=== PATIENT | female | born 1940 | race Two or more races ===

== ENCOUNTER 2020-03-04 14:30 | Inpatient (IN) | payer OTHER ==
[~2020-03-04] VITALS: Ht 160 cm; Wt 58.9 kg
[2020-03-04] MEDS ORDERED: ACETAMINOPHEN 325 MG TAB PO ONE (14:45)
[2020-03-04 15:28] LABS: Basophils # (auto) 0 10 ^3/uL (0-0.2); Basophils % (auto) 0.1 % (0.0-2.0); Eosinophils # (auto) 0 10 ^3/uL (0-0.8); Hematocrit 39.3 % (36.0-46.0); Lymphocytes # (auto) 0.7 10 ^3/uL (0.4-5.4); Lymphocytes % (auto) 11.9 % (10.0-50.0); Mean Corpuscular Hemoglobin 32.5 pg (28.0-32.0); Mean Corpuscular Hgb Conc. 35.7 g/dL (32.0-36.0); Mean Corpuscular Volume 91.3 fL (80.0-100.0); Monocytes # (auto) 0.3 10 ^3/uL (0-1.3); Monocytes % (auto) 5.2 % (0.0-12.0); Neutrophils # (auto) 4.9 10 ^3/uL (1.6-8.6); Neutrophils % (auto) 82.8 % (37.0-80.0); Nucleated Red Blood Cells % 0.3 %; Platelet Count (auto) 236 10^3/uL (140-450); Red Cell Distribution Width 12.5 % (11.8-14.3); White Blood Cell 5.9 10^3/uL (4.4-10.8)
[2020-03-04 15:44] LABS: Albumin 2.9 g/dL (3.4-5.0); Anion Gap 8 (5-15); Blood Urea Nitrogen 18 mg/dL (7-18); Calcium 8.5 mg/dL (8.5-10.1); Carbon Dioxide 26 mmol/L (21-32); Chloride 100 mmol/L (98-107); Glucose 115 mg/dL (74-106); Magnesium 2.5 mg/dL (1.6-2.6); Potassium 3.4 mmol/L (3.5-5.1); Sodium 134 mmol/L (136-145)
[2020-03-04 15:49] LABS: Alanine Aminotransferase 51 U/L (13-56); Alkaline Phosphatase 79 U/L (45-117); Aspartate Aminotransferase 79 U/L (15-37); BUN/Creatinine Ratio 20.9; Bilirubin, Total 0.7 mg/dL (0.2-1.0); GFR African American 82 mL/min; GFR Non-African American 68 mL/min
[2020-03-04] MEDS ORDERED: DexAMETHasone 4 MG TAB PO ONE (18:00)
[2020-03-04] MEDS ORDERED: ASCORBIC ACID 500 MG TAB PO ONE (18:00)
[2020-03-04] MEDS ORDERED: AZITHROMYCIN 500MG/ 250ML 250 ML IV ONE (18:00)
[2020-03-04] MEDS ORDERED: DexAMETHasone SOD PHOS 10MG/1ML VIAL INJ ONE (18:13)
[2020-03-04] MEDS ORDERED: DexAMETHasone SOD PHOS 10MG/1ML VIAL INJ IV ONE (18:30)
[2020-03-04] MEDS ORDERED: NITROGLYCERIN 0.4 MG SL TAB SL PRN ×2 (19:30)
[2020-03-04] MEDS ORDERED: MORPHINE SULF INJ 2 MG/ML SYRINGE 1ML IV PRN ×2 (19:30)
[2020-03-05] MEDS ORDERED: ONDANSETRON HCL 4 MG/2 ML VIAL IV PRN
[2020-03-05] MEDS ORDERED: LISINOPRIL 20 MG TAB PO ONE
[2020-03-05] MEDS ORDERED: NITROGLYCERIN 0.4 MG SL TAB SL PRN
[2020-03-05] MEDS ORDERED: DOCUSATE SOD 100 MG CAP PO PRN
[2020-03-05] MEDS ORDERED: ALUM & MAG HYDROX-SIMETH LIQ(MAALOX) 30 ML PO PRN
[2020-03-05] MEDS ORDERED: REMDESIVIR PER PHARMACY 0 ML IV SCH
[2020-03-05] MEDS ORDERED: ACETAMINOPHEN 500 MG TAB PO PRN
[2020-03-05] MEDS ORDERED: HYDROcodone-ACET 5/325MG TAB PO PRN
[2020-03-05] MEDS ORDERED: MORPHINE SULF INJ 2 MG/ML SYRINGE 1ML IV PRN ×2
[2020-03-05] MEDS ORDERED: POTASSIUM CHL 20MEQ/100ML 100 ML IV ONE
[2020-03-05] MEDS: SODIUM CHLORIDE 0.9% 1,000 ML IV SCH ×2 (01:43→16:58)
[2020-03-05] MEDS: GABAPENTIN 300 MG CAP PO SCH ×3 (06:06→21:45)
[2020-03-05] MEDS: LEVOTHYROXINE SODIUM 25 MCG TAB PO SCH (07:00)
--- NOTE | 2020-03-05 08:21 | NUR ---
Telemetry admit from ER TOBI BYERS admitted to Telemetry unit after SBAR received. Patient oriented to KATE BOUCHERRN primary RN, [facility],288 room,B bed, and unit policies regarding patient care and visiting hours. Patient now on continuous telemetry monitoring, tele box # 66 and telemetry reading on arrival to unit is SB 56. Patient placed on bedside oxygen, weighed by bedscale and encouraged to call if they need something. All questions and concerns addressed, patient verbalized understanding. Note:
[2020-03-05 08:40] VITALS: BP 125/70
[2020-03-05 09:00] VITALS: BP 125/70
[2020-03-05 10:18] LABS: Basophils # (auto) 0 10 ^3/uL (0-0.2); Basophils % (auto) 0.1 % (0.0-2.0); Eosinophils # (auto) 0 10 ^3/uL (0-0.8); Hematocrit 37.9 % (36.0-46.0); Hemoglobin 13.2 g/dL (12.2-16.2); Lymphocytes # (auto) 0.3 10 ^3/uL (0.4-5.4); Lymphocytes % (auto) 14.6 % (10.0-50.0); Mean Corpuscular Hemoglobin 31.8 pg (28.0-32.0); Mean Corpuscular Hgb Conc. 34.8 g/dL (32.0-36.0); Mean Corpuscular Volume 91.4 fL (80.0-100.0); Monocytes # (auto) 0.1 10 ^3/uL (0-1.3); Monocytes % (auto) 5.6 % (0.0-12.0); Neutrophils # (auto) 1.9 10 ^3/uL (1.6-8.6); Neutrophils % (auto) 79.7 % (37.0-80.0); Nucleated Red Blood Cells % 0.2 %; Platelet Count (auto) 244 10^3/uL (140-450); Red Blood Cells 4.15 10^6/uL (4.0-5.20); Red Cell Distribution Width 12.4 % (11.8-14.3); White Blood Cell 2.4 10^3/uL (4.4-10.8)
[2020-03-05 10:26] LABS: Chloride 102 mmol/L (98-107); Potassium 3.8 mmol/L (3.5-5.1); Sodium 134 mmol/L (136-145)
[2020-03-05] MEDS: BUDESONIDE (INHALATION) 180 MCG IH IN SCH ×2 (10:27→20:45)
[2020-03-05] MEDS: ALBUTEROL SULF HFA 90MCG INH 200DOSE IN PRN ×2 (10:28→20:46)
[2020-03-05] MEDS: ENOXAPARIN SOD 40 MG/0.4 ML SYRINGE SC SCH ×2 (10:48→21:46)
[2020-03-05] MEDS: DOXYCYCLINE 100MG/250ML 250 ML IV SCH ×2 (10:50→21:45)
[2020-03-05] MEDS: LISINOPRIL 20 MG TAB PO SCH (10:50)
[2020-03-05] MEDS: CHOLECALCIFEROL (VITD3) 2,000 UNIT CAP PO SCH (10:51)
[2020-03-05] MEDS: POTASSIUM CHL 20 Meq TABLET PO SCH (10:51)
[2020-03-05] MEDS: ASCORBIC ACID 1,000 MG TAB PO SCH (10:51)
[2020-03-05] MEDS: ZINC SULFATE 220mg CAP or TAB PO SCH (10:55)
[2020-03-05 10:58] LABS: Alanine Aminotransferase 49 U/L (13-56); Albumin 2.6 g/dL (3.4-5.0); Alkaline Phosphatase 68 U/L (45-117); Anion Gap 9 (5-15); Aspartate Aminotransferase 57 U/L (15-37); BUN/Creatinine Ratio 26.3; Bilirubin, Total 0.5 mg/dL (0.2-1.0); Blood Urea Nitrogen 20 mg/dL (7-18); Calcium 8.3 mg/dL (8.5-10.1); Carbon Dioxide 23 mmol/L (21-32); Cholesterol 145 mg/dL (< 200); GFR African American 95 mL/min; GFR Non-African American 78 mL/min; Glucose 154 mg/dL (74-106); HDL Cholesterol 44 mg/dL (40-59); LDL Cholesterol 90 mg/dL (< 100); Lactate Dehydrogenase 359 U/L (84-246); Magnesium 2.7 mg/dL (1.6-2.6); Total Protein 7.3 g/dL (6.4-8.2); Triglycerides 74 mg/dL (< 150)
--- NOTE | 2020-03-05 11:18 | NUR ---
REGISTERED DIETICIAN WEEKEND Faxed clinical information to [facility] .
[2020-03-05] MEDS: DexAMETHasone SOD PHOS 10MG/1ML VIAL INJ IV SCH (12:16)
--- NOTE | 2020-03-05 13:05 | NUR ---
Spoke with patients daughter regarding home medications per daughter she will look for patients medication and call me back with patients home medications.
[2020-03-05 13:06] VITALS: BP 134/74
[2020-03-05] MEDS ORDERED: ROSU5TAB5 PO (13:47)
[2020-03-05] MEDS ORDERED: LEVO75TA6 PO (13:47)
[2020-03-05] MEDS ORDERED: LISI-648 PO (13:47)
[2020-03-05] MEDS ORDERED: GABA300C10 PO (13:47)
[2020-03-05] MEDS ORDERED: ROPI1TAB2 PO (13:48)
--- NOTE | 2020-03-05 13:50 | NUR ---
Doctor Krystyna at bedside.
[2020-03-05] MEDS ORDERED: REMDESIVIR 200 MG in NS 210ml LOADING DOSE ADULT IV ONE (17:00)
[2020-03-05 17:12] VITALS: BP 147/71
[2020-03-05] MEDS: guaiFENesin-DM 100/10mg/5ml SYR PO PRN (19:04)
--- NOTE | 2020-03-05 19:18 | NUR ---
remdesivir vs 1745pre-143/79 hr 60 1800-15minutes 155/70 57hr 1855 Post remdesivir v/s 151/76 60 hr No S/S of distress noted.
--- NOTE | 2020-03-05 19:30 | NUR ---
OPENING SHIFT NOTE Assumed care of patient who is A&O x4. Currently on 5L NC with no s/s of distress. reports SOB with exertion and cough with clear phlegm. Denies pain at this time. PIV in right hand intact and patent. Flushed with 10ml NS. IVF initiated as ordered. POC discussed and patient verbalizes understanding. Bed is in low locked position with side rails up x2. Call light is within reach and patient encouraged to call for assistance when needed. Bed alarm on for safety.
[2020-03-05 20:00] VITALS: BP 126/66
[2020-03-05 21:00] VITALS: BP 126/66
[2020-03-05] MEDS: ATORVASTATIN 20 MG TAB PO SCH (21:45)
--- NOTE | 2020-03-05 22:30 | NUR ---
Patient assisted to restroom. Increase in coughing noted upon exertion. Patient assisted back to bed post voiding. Spo2 is 93%. Bed alarm on; will continue to monitor.
--- NOTE | 2020-03-05 22:48 | NUR ---
SPECIMEN COLLECTION Urine sample collected and sent to lab via [facility]t system.
[2020-03-05 23:15] LABS: Urine Bacteria FEW /hpf (None Seen); Urine Blood TRACE /uL (Negative); Urine Hyaline Cast FEW /lpf (0 - 2); Urine Mucus FEW (None Seen); Urine Specific Gravity 1.026 (1.001-1.035); Urine WBC 7 /hpf (0 - 5)
[2020-03-05 23:24] LABS: Alcohol, Urine < 3.0 mg/dL (0-10); Amphetamine Screen, Urine NEGATIVE (NEGATIVE); Barbiturate Scree,Urine NEGATIVE (NEGATIVE); Benzodiazephine Screen, Urine NEGATIVE (NEGATIVE); Cannabinoid Screen, Urine NEGATIVE (NEGATIVE); Cocaine Screen, Urine NEGATIVE (NEGATIVE); Opiate Scree,Urine NEGATIVE (NEGATIVE); Phencyclidine Screen, Urine NEGATIVE (NEGATIVE)
--- NOTE | 2020-03-06 02:30 | NUR ---
Patient assisted to restroom. Tolerated well. Will continue to monitor.
[2020-03-06 05:00] VITALS: BP 143/66
[2020-03-06 05:09] VITALS: BP 143/66
[2020-03-06] MEDS: GABAPENTIN 300 MG CAP PO SCH ×3 (06:33→21:27)
[2020-03-06] MEDS: LEVOTHYROXINE SODIUM 25 MCG TAB PO SCH (06:34)
[2020-03-06] MEDS: BUDESONIDE (INHALATION) 180 MCG IH IN SCH ×2 (07:10→21:50)
[2020-03-06] MEDS: ALBUTEROL SULF HFA 90MCG INH 200DOSE IN PRN ×2 (07:10→21:50)
[2020-03-06 07:36] LABS: Potassium 4.3 mmol/L (3.5-5.1)
[2020-03-06 07:42] LABS: Albumin 2.5 g/dL (3.4-5.0); Bilirubin, Total 0.3 mg/dL (0.2-1.0); Calcium 8.6 mg/dL (8.5-10.1); Total Protein 6.7 g/dL (6.4-8.2)
[2020-03-06 09:00] VITALS: BP 133/74
[2020-03-06] MEDS: SODIUM CHLORIDE 0.9% 1,000 ML IV SCH (09:20)
[2020-03-06] MEDS: DexAMETHasone SOD PHOS 10MG/1ML VIAL INJ IV SCH (10:37)
[2020-03-06] MEDS: ZINC SULFATE 220mg CAP or TAB PO SCH (10:37)
[2020-03-06] MEDS: POTASSIUM CHL 20 Meq TABLET PO SCH (10:37)
[2020-03-06] MEDS: CHOLECALCIFEROL (VITD3) 2,000 UNIT CAP PO SCH (10:38)
[2020-03-06] MEDS: ASCORBIC ACID 1,000 MG TAB PO SCH (10:38)
[2020-03-06] MEDS: ENOXAPARIN SOD 40 MG/0.4 ML SYRINGE SC SCH ×2 (10:38→21:27)
[2020-03-06] MEDS: LISINOPRIL 20 MG TAB PO SCH (10:41)
[2020-03-06] MEDS: DOXYCYCLINE 100MG/250ML 250 ML IV SCH ×2 (10:43→21:27)
--- NOTE | 2020-03-06 13:08 | NUR ---
PATIENT TRANSFERRED TO ROOM 247 WITH [facility]ENITA PRIETO AND CHARGE NURSE MARS VIA BED. PATIENT ON 5L NC. NO S/S OF DISTRESS NOTED AT THIS TIME.
[2020-03-06] MEDS: REMDESIVIR 100 MG in SODIUM CHL 0.9% 250 ML IV SCH (16:06)
--- NOTE | 2020-03-06 16:06 | NUR ---
Remdesivir infusion initiated Remdesivir infusion initiated at this time after proper administration checks performed and possible side effects reviewed with patient.. Baseline VS: HR- 61 BP- 162/76
[2020-03-06 16:58] VITALS: BP 156/81
[2020-03-06] MEDS: hydrALAZINE HCL 20 MG/ML VL IV PRN (17:04)
--- NOTE | 2020-03-06 17:04 | NUR ---
increased BP Patient BP at this time 159/71, will medicate as per MD orders with Hydralazine 10mg IV for SBP >150 and reassess.
[2020-03-06] MEDS: ATORVASTATIN 20 MG TAB PO SCH (21:27)
[2020-03-06] MEDS: guaiFENesin-DM 100/10mg/5ml SYR PO PRN (21:43)
[2020-03-06] MEDS: LORazepam 0.5 MG TAB PO PRN (21:43)
[2020-03-06 22:00] VITALS: BP 138/73
[2020-03-07] VITALS (7 sets, daily range): BP systolic 121–151; BP diastolic 63–79
[2020-03-07] MEDS: SODIUM CHLORIDE 0.9% 1,000 ML IV SCH ×2 (02:00→06:23)
[2020-03-07] MEDS: GABAPENTIN 300 MG CAP PO SCH ×3 (06:23→21:03)
[2020-03-07] MEDS: LEVOTHYROXINE SODIUM 25 MCG TAB PO SCH (06:23)
--- NOTE | 2020-03-07 07:25 | NUR ---
Opening Shift Note Assumed care of patient, awake and alert. A/O X 4. Patient on 2L NC. No S/S of distress/SOB or pain. Skin is warm and dry and bowel sounds are heard throughout. Left hand IV appears swollen and is tender upon flushing. Instructed on POC and to call for assist PRN. Patient verbalized understanding. Safety measures are in place and the call light is within reach of the patient. Will continue to monitor for changes Q1hr and PRN.
[2020-03-07] MEDS: ALBUTEROL SULF HFA 90MCG INH 200DOSE IN PRN ×2 (07:39→21:20)
[2020-03-07] MEDS: BUDESONIDE (INHALATION) 180 MCG IH IN SCH ×2 (07:40→21:20)
[2020-03-07 07:56] LABS: Albumin 2.4 g/dL (3.4-5.0); BUN/Creatinine Ratio 30.4; Bilirubin, Total 0.4 mg/dL (0.2-1.0); Calcium 8.6 mg/dL (8.5-10.1); Total Protein 6.5 g/dL (6.4-8.2)
--- NOTE | 2020-03-07 08:50 | NUR ---
IV insertion ]IV access obtained, via clean sterile technique by inserting 20 gauge catheter in the left hand after 1 attempt. IV secured properly. No trauma to site. Patient tolerated well. Right hand IV DC'd with clean sterile technique, catheter fully intact. Pressure dressing applied to site. Patient tolerated well.
[2020-03-07] MEDS: CHOLECALCIFEROL (VITD3) 2,000 UNIT CAP PO SCH (10:20)
[2020-03-07] MEDS: ENOXAPARIN SOD 40 MG/0.4 ML SYRINGE SC SCH ×2 (10:20→21:03)
[2020-03-07] MEDS: ZINC SULFATE 220mg CAP or TAB PO SCH (10:20)
[2020-03-07] MEDS: POTASSIUM CHL 20 Meq TABLET PO SCH (10:20)
[2020-03-07] MEDS: DexAMETHasone SOD PHOS 10MG/1ML VIAL INJ IV SCH (10:20)
[2020-03-07] MEDS: LISINOPRIL 20 MG TAB PO SCH (10:20)
[2020-03-07] MEDS: ASCORBIC ACID 1,000 MG TAB PO SCH (10:20)
[2020-03-07] MEDS: DOXYCYCLINE 100MG/250ML 250 ML IV SCH ×2 (10:20→21:02)
--- NOTE | 2020-03-07 11:45 | NUR ---
Dr. Morales at bedside Dr. Morales at bedside discussing the POC with the patient. All questions and concerns were answered at this time.
[2020-03-07] MEDS: REMDESIVIR 100 MG in SODIUM CHL 0.9% 250 ML IV SCH (16:15)
[2020-03-07] MEDS: guaiFENesin-DM 100/10mg/5ml SYR PO PRN (16:15)
--- NOTE | 2020-03-07 16:15 | NUR ---
Remdesivir treatment vitals HR 59, RR 20, BP 151/79, Temp 98.0, O2 93%. Addendum: 03/07/20 at 1641 by Rose Shah RN RN 1655 vitals HR 73, RR 20, BP 160/33, Temp 97.9, O2 92%. Addendum: 03/07/20 at 1752 by Rose Shah RN RN Post treatment vitals HR 61, RR 26, BP 150/89, Temp 97.8, O2 94%.
[2020-03-07] MEDS: hydrALAZINE HCL 20 MG/ML VL IV PRN (17:50)
--- NOTE | 2020-03-07 19:22 | NUR ---
Opening Shift Note Assumed care of patient, awake and alert. No S/S of distress/SOB or pain. Instructed on POC and to call for assist PRN, will continue to monitor for changes Q1hr and PRN.
[2020-03-07] MEDS: ATORVASTATIN 20 MG TAB PO SCH (21:03)
[2020-03-07] MEDS: LORazepam 0.5 MG TAB PO PRN (21:03)
[2020-03-08 05:00] VITALS: BP 143/81
[2020-03-08] MEDS: GABAPENTIN 300 MG CAP PO SCH ×3 (06:20→21:47)
[2020-03-08] MEDS: LEVOTHYROXINE SODIUM 25 MCG TAB PO SCH ×2 (06:21)
[2020-03-08] MEDS: BUDESONIDE (INHALATION) 180 MCG IH IN SCH ×2 (07:18→20:08)
[2020-03-08 08:25] VITALS: BP 156/69
[2020-03-08 09:00] VITALS: BP 134/64
[2020-03-08 09:02] LABS: Basophils # (auto) 0 10 ^3/uL (0-0.2); Eosinophils # (auto) 0 10 ^3/uL (0-0.8); Hematocrit 37.4 % (36.0-46.0); Hemoglobin 12.9 g/dL (12.2-16.2); Lymphocytes # (auto) 0.9 10 ^3/uL (0.4-5.4); Lymphocytes % (auto) 12.8 % (10.0-50.0); Mean Corpuscular Hemoglobin 31.7 pg (28.0-32.0); Mean Corpuscular Hgb Conc. 34.5 g/dL (32.0-36.0); Mean Corpuscular Volume 91.9 fL (80.0-100.0); Monocytes # (auto) 0.4 10 ^3/uL (0-1.3); Monocytes % (auto) 6.4 % (0.0-12.0); Neutrophils # (auto) 5.6 10 ^3/uL (1.6-8.6); Neutrophils % (auto) 80.8 % (37.0-80.0); Platelet Count (auto) 364 10^3/uL (140-450); Red Blood Cells 4.07 10^6/uL (4.0-5.20); Red Cell Distribution Width 13.1 % (11.8-14.3)
[2020-03-08 09:35] LABS: Albumin 2.4 g/dL (3.4-5.0); BUN/Creatinine Ratio 30.5; Bilirubin, Total 0.4 mg/dL (0.2-1.0); Calcium 8.4 mg/dL (8.5-10.1); Total Protein 6.3 g/dL (6.4-8.2)
[2020-03-08] MEDS: DOXYCYCLINE 100MG/250ML 250 ML IV SCH (11:08)
[2020-03-08] MEDS: DexAMETHasone SOD PHOS 10MG/1ML VIAL INJ IV SCH (11:08)
[2020-03-08] MEDS: ZINC SULFATE 220mg CAP or TAB PO SCH (11:09)
[2020-03-08] MEDS: POTASSIUM CHL 20 Meq TABLET PO SCH (11:09)
[2020-03-08] MEDS: ASCORBIC ACID 1,000 MG TAB PO SCH (11:10)
[2020-03-08] MEDS: CHOLECALCIFEROL (VITD3) 2,000 UNIT CAP PO SCH (11:10)
[2020-03-08] MEDS: ENOXAPARIN SOD 40 MG/0.4 ML SYRINGE SC SCH ×2 (11:10→21:47)
--- NOTE | 2020-03-08 11:10 | NUR ---
Nutrition Assessment Est energy needs 6376-1701 kcal (25-30 kcal/kg BW 59.7kg) Est protein eeds 48-60g (0.8-1g/kg BW 59.7kg) Will monitor and reassess prn. Addendum: 03/08/20 at [address] Amended: Links added.
[2020-03-08] MEDS: LISINOPRIL 20 MG TAB PO SCH (11:11)
[2020-03-08 11:37] LABS: Potassium 3.9 mmol/L (3.5-5.1)
[2020-03-08 11:43] LABS: BUN/Creatinine Ratio 26.4; Calcium 8.4 mg/dL (8.5-10.1)
[2020-03-08 13:00] VITALS: BP 156/69
--- NOTE | 2020-03-08 14:20 | NUR ---
started remdesivir; vitals at start 161/79; however, unable to complete due to lack of IV access. This RN and another RN tried several times with no luck. This RN will endorse this to the client service administrator nurseFallon. Addendum: 03/08/20 at 1942 by BRANDON HUGHES RN wrong time put (correct time is 1630).
--- NOTE | 2020-03-08 14:35 | NUR ---
Dr. Morales at bedside Dr. Morales at bedside discussing the POC with the patient. All questions and concerns were answered at this time.
[2020-03-08] MEDS: REMDESIVIR 100 MG in SODIUM CHL 0.9% 250 ML IV SCH (15:00)
[2020-03-08 17:00] VITALS: BP 155/74
--- NOTE | 2020-03-08 19:20 | NUR ---
Opening Shift Note Assumed care of patient, awake and alert. No S/S of distress/SOB or pain. Patient has no IV access. Instructed on POC and to call for assist PRN, will continue to monitor for changes Q1hr and PRN.
[2020-03-08] MEDS: ALBUTEROL SULF HFA 90MCG INH 200DOSE IN PRN (20:09)
--- NOTE | 2020-03-08 20:09 | NUR ---
PT SEEN AT THIS TIME. ALB 2 PUFFS GIVEN VIA SPACER AND PULM 360 MCG GIVEN WITH NO ADVERSE REACTIONS. PT TOLERATED WELL. HR 72 POX 94 RR 18.
[2020-03-08 21:00] VITALS: BP 141/66
--- NOTE | 2020-03-08 21:00 | NUR ---
IV insertion IV access obtained, via clean sterile technique by inserting 20 gauge catheter at after attempt. IV secured properly. No trauma to site. Patient tolerated well.
--- NOTE | 2020-03-08 21:02 | NUR ---
Remdesivir Resume Patient made of aware of the need to finish remdesivir treatment. Vitals T-98.1,O2-92%,BP-141/66,HR-62, R-20
[2020-03-08] MEDS: LORazepam 0.5 MG TAB PO PRN (21:48)
[2020-03-08] MEDS: DOXYCYCLINE 100 MG TAB/CAP PO SCH (21:48)
[2020-03-08] MEDS: ATORVASTATIN 20 MG TAB PO SCH (21:48)
--- NOTE | 2020-03-08 22:15 | NUR ---
Post Remdesivir Vitals Patient noted no reactions T-97.9, BP-144/77, HR-54, O2%-94, R-20, P-0
[2020-03-09 06:00] VITALS: BP 149/86
[2020-03-09] MEDS: GABAPENTIN 300 MG CAP PO SCH ×2 (06:08→14:00)
[2020-03-09] MEDS: LEVOTHYROXINE SODIUM 25 MCG TAB PO SCH ×2 (06:09→06:11)
[2020-03-09] MEDS: ALBUTEROL SULF HFA 90MCG INH 200DOSE IN PRN (07:18)
--- NOTE | 2020-03-09 07:45 | NUR ---
Opening Shift Note Assumed care of patient, awake and alert. No S/S of distress/SOB or pain. Instructed on POC and to call for assist PRN, will continue to monitor for changes Q1hr and PRN. Fall precautions in place per safety protocol.
[2020-03-09 09:00] VITALS: BP 130/74
[2020-03-09] MEDS ORDERED: DexAMETHasone 4 MG TAB PO SCH (10:00)
[2020-03-09] MEDS: BUDESONIDE (INHALATION) 180 MCG IH IN SCH (10:07)
[2020-03-09] MEDS: CHOLECALCIFEROL (VITD3) 2,000 UNIT CAP PO SCH (10:07)
[2020-03-09] MEDS: ASCORBIC ACID 1,000 MG TAB PO SCH (10:07)
[2020-03-09] MEDS: ZINC SULFATE 220mg CAP or TAB PO SCH (10:07)
[2020-03-09] MEDS: POTASSIUM CHL 20 Meq TABLET PO SCH (10:07)
[2020-03-09] MEDS: DOXYCYCLINE 100 MG TAB/CAP PO SCH (10:07)
[2020-03-09] MEDS: LISINOPRIL 20 MG TAB PO SCH (10:08)
[2020-03-09] MEDS: ENOXAPARIN SOD 40 MG/0.4 ML SYRINGE SC SCH (10:08)
--- NOTE | 2020-03-09 11:24 | NUR ---
Assessment Patient is a 79 year old female, Patient is alert and oriented. Patient cognitive abilities are intact, patient stated that she could do all ADL's and ambulate independently. Patient stated that she lives alone and receives social security as income. Patient stated that she will return home post discharge. Patient states that Ashley Franco ([phone]), is her support system. Patient stated that Ashley will provide transportation post discharge. Patient is receptive on receiving Advance Directive forms. Discharge planning: Patient will return home post discharge, patient will follow up care with her PCP post discharge. SW will provide Advance Directive forms in [place]ian prior to discharge. There are no other discharge needs to address at the moment.
--- NOTE | 2020-03-09 12:12 | NUR ---
1200 03/09/20 - Faxed to [facility] at [phone] face sheet, order for DME front wheeled walker, discharge summary. Pending review and delivery of walker to patient at bedside.
[2020-03-09 13:00] VITALS: BP 152/78
[2020-03-09] MEDS: REMDESIVIR 100 MG in SODIUM CHL 0.9% 250 ML IV SCH (15:04)
--- NOTE | 2020-03-09 16:30 | NUR ---
Hospitalist Spoke to MD Lujan regarding patients Oxygen delivery. Per MD Lujan, if patient's O2 on RA is above 90%. Patient may be discharged, and FWW and O2 may be delivered to home.
--- NOTE | 2020-03-09 16:56 | NUR ---
1655 03/09/20 - Faxed to [facility] at [phone] and to [employer] vendor at [phone] face sheet, order for home oxygen 2L NC continuous. Pending review and delivery of portable to bedside.
[2020-03-09 17:00] VITALS: BP 138/71
--- NOTE | 2020-03-09 17:41 | NUR ---
4053 03/09/20 - Contacted [facility] at [phone] to f/u on delivery time for FWW and home oxygen. Spoke with Delfina who stated walker was schedule for delivery between 1999 and 2299 and stated home oxygen was still being processed. I will inform nurse regarding the above information.
[2020-03-09 18:38] VITALS: BP 128/67
--- NOTE | 2020-03-09 18:58 | NUR ---
Closing Note Patient resting in bed, no distress, sob, or pain noted at this time. Patient currently on RA. Will endorse Discharge to [facility].
--- NOTE | 2020-03-09 20:02 | NUR ---
PATIENT DISCHARGED WITH ALL BELONGINGS. TELE BOX SENT TO MONITOR TECHS.
--- NOTE | 2020-03-10 10:52 | NUR ---
1800 03/09/20 - Contacted [facility] at [phone] regarding delivery of home oxygen and FWW to patient. Informed customer rep that patient is requesting all DME to be delivered to patient home, provided address [address] [place] [address], (daughter Evangelina). Customer Rep stated items will be delivered between 8734-0260 tomorrow (03/10/20)
--- NOTE | 2020-03-10 16:16 | NUR ---
Rec'd call from Evangelina pt's daughter, upset stating that oxygen has not been delivered and she keeps getting the run around whoever she calls. Called Dev spoke with , provided all info, delivery address, oxygen order for 2L/min NC continuous, alternative delivery address of: [address] in [place] and Daughter Evangelina ph# [phone]. CHAO Duque called [facility] and provided info for oxygen request. Oxygen should be delivered tonight in the next 2-4 hours. Advised Daughter any further problems she can call and request on-call CM to assist her.
== END 2020-03-09 20:00 | disposition home or self-care (01) | DRG 177 ==
LOC: ER 14:30 → OVERFLOW 14:31 → TELE-WESTW 03-05 08:15 → TELE-EAST 03-06 13:04
PROVIDERS: ADMIT Hospitalist; ATTEND Internal Medicine
PROC: XW033E5 Introduction of Remdesivir Anti-infective into Peripheral Vein, Percutaneous Approach, New Technology Group 5 (ICD-10-PCS; principal; 2020-03-05)
DX: U07.1 COVID-19 (principal); J12.89 Other viral pneumonia; J96.01 Acute respiratory failure with hypoxia; I10 Essential (primary) hypertension; E03.9 Hypothyroidism, unspecified; M19.90 Unspecified osteoarthritis, unspecified site; G25.81 Restless legs syndrome; E78.5 Hyperlipidemia, unspecified; Z79.82 Long term (current) use of aspirin; Z83.3 Family history of diabetes mellitus; E11.42 Type 2 diabetes mellitus with diabetic polyneuropathy
CPT/HCPCS: 36415; 71045; 80048; 80053; 80061; 80307; 81001; 82728; 83036; 83615; 83735; 84443; 84484; 85025; 85379; 86141; 87040; 87086; 87426; 93005; 94640; 96361; 96365; 96366; 96375; 99291; G0378; J1100; J2405; J3480; J3490

== ENCOUNTER 2020-11-19 12:03 | Emergency (ER) | payer OTHER ==
[~2020-11-19] VITALS: Ht 162.6 cm; Wt 54.4 kg
[~2020-11-19 12:03] MED LIST: GABA300C10 PO; LEVO75TA6 PO; LISI-716 PO; ROPI1TAB4 PO; ROSU5TAB5 PO
[2020-11-19] MEDS ORDERED: IBUPROFEN 600 MG TAB PO ONE (14:51)
[2020-11-19 16:01] VITALS: BP 116/71
[2020-11-19] MEDS ORDERED: LACTULOSE 20Gm/30ML SOLN PO ONE (16:45)
[2020-11-19] MEDS ORDERED: cefTRIAXone SOD 1,000 MG VL IM ONE (16:45)
== END 2020-11-19 17:08 | disposition home or self-care (01) ==
LOC: ER 12:03
DX: K59.00 Constipation, unspecified (principal); L02.32 Furuncle of buttock; N28.1 Cyst of kidney, acquired; I10 Essential (primary) hypertension; Z79.899 Other long term (current) drug therapy
CPT/HCPCS: 74176; 96372; 99284; J0696